=== PATIENT | female | born 1990 | race Caucasian/White ===

== ENCOUNTER 2016-11-21 18:39 | Inpatient (IN) | payer BC ==
[~2016-11-21] VITALS: Ht 154.9 cm; Wt 84.4 kg
[~2016-11-21 18:39] MED LIST: DOC-Q-LACE100 MG PO
[2016-11-21 19:16] LABS: RED BLOOD COUNT 4.74 M/UL (4.00-5.10); WHITE BLOOD COUNT 17.9 K/UL (4.5-11.0)
[2016-11-23 02:44] LABS: HEMOGLOBIN 10.2 gm/dl (12.3-15.3)
== END 2016-11-24 13:02 | disposition home or self-care (01) | DRG 765 ==
LOC: GENOP 18:39 → OB 19:34
PROVIDERS: ADMIT Obstetrics & Gynecology
PROC: 4A1HX4Z Monitoring of Products of Conception, Cardiac Electrical Activity, External Approach (ICD-10-PCS; 2016-11-22)
PROC: 10D00Z1 Extraction of Products of Conception, Low, Open Approach (ICD-10-PCS; principal; 2016-11-22 07:27)
DX: O36.5930 Maternal care for other known or suspected poor fetal growth, third trimester, not applicable or unspecified (principal); O41.03X0 Oligohydramnios, third trimester, not applicable or unspecified; Z3A.36 36 weeks gestation of pregnancy; Z37.0 Single live birth; O34.211 Maternal care for low transverse scar from previous cesarean delivery
CPT/HCPCS: 36415; 82800; 85014; 85018; 85025; C9113; J0690; J2274; J2370; J2405; J2590; J2765; J3010; J3430; J7120

== ENCOUNTER 2020-04-16 19:25 | Outpatient (CLI) | payer BC, OTHER ==
[~2020-04-16] VITALS: Ht 154.9 cm; Wt 87.5 kg
== END 2020-04-16 20:32 | disposition home or self-care (01) ==
LOC: GENOP 19:25
DX: O26.893 Other specified pregnancy related conditions, third trimester (principal); Z3A.31 31 weeks gestation of pregnancy
CPT/HCPCS: G0463; Q0177

== ENCOUNTER 2020-05-17 10:52 | Outpatient (CLI) | payer BC, OTHER | END 2020-05-17 12:23 | disposition home or self-care (01) | LOC: GENOP 10:52 | DX: O42.913 Preterm premature rupture of membranes, unspecified as to length of time between rupture and onset of labor, third trimester (principal); Z3A.35 35 weeks gestation of pregnancy | CPT/HCPCS: 83518; G0463 ==

== ENCOUNTER 2020-06-11 13:12 | Outpatient (CLI) | payer BC, OTHER ==
[2020-06-11 13:51] LABS: HEMOGLOBIN 11.2 gm/dl (12.3-15.3); RED BLOOD COUNT 4.37 M/UL (4.00-5.10); WHITE BLOOD COUNT 15.1 K/UL (4.5-11.0)
[2020-06-12] MEDS ORDERED: PRENA1 CHEW TA1.4 MG PO (08:03)
[2020-06-12] MEDS ORDERED: DOCUSATE SODIU100 MG PO (09:37)
[2020-06-12] MEDS ORDERED: HYDROCODON-ACE1 EAC4 PO (09:37)
[2020-06-12] MEDS ORDERED: IBUPROFEN600 MG PO (09:37)
== END 2020-06-11 14:19 | disposition home or self-care (01) ==
LOC: GENOP 13:12
PROVIDERS: Obstetrics & Gynecology
DX: Z01.812 Encounter for preprocedural laboratory examination (principal)
CPT/HCPCS: 36415; 81001; 85025

== ENCOUNTER 2020-06-12 06:30 | Inpatient (IN) | payer BC, OTHER ==
[~2020-06-12] VITALS: Ht 154.9 cm; Wt 89.8 kg
[2020-06-12] MEDS ORDERED: PRENA1 CHEW TA1.4 MG PO (08:03)
[2020-06-12] MEDS ORDERED: IBUPROFEN600 MG PO (09:37)
[2020-06-12] MEDS ORDERED: DOCUSATE SODIU100 MG PO (09:37)
[2020-06-12] MEDS ORDERED: HYDROCODON-ACE1 EAC4 PO (09:37)
[2020-06-13 06:46] LABS: HEMOGLOBIN 9.6 gm/dl (12.3-15.3)
== END 2020-06-13 15:16 | disposition home or self-care (01) | DRG 788 ==
LOC: OB 06:30
PROVIDERS: ADMIT Obstetrics & Gynecology
PROC: 4A1HXCZ Monitoring of Products of Conception, Cardiac Rate, External Approach (ICD-10-PCS; 2020-06-12)
PROC: 10D00Z1 Extraction of Products of Conception, Low, Open Approach (ICD-10-PCS; principal; 2020-06-12 09:46)
DX: O34.211 Maternal care for low transverse scar from previous cesarean delivery (principal); Z3A.39 39 weeks gestation of pregnancy; Z37.0 Single live birth; Z20.822 Contact with and (suspected) exposure to COVID-19; O99.62 Diseases of the digestive system complicating childbirth; K21.9 Gastro-esophageal reflux disease without esophagitis
CPT/HCPCS: 36415; 82800; 85014; 85018; C9113; J0690; J1885; J2210; J2250; J2274; J2370; J2405; J2590; J3010; J7120; U0003